=== PATIENT | female | born 1995 | race Two or more races ===

== ENCOUNTER 2021-09-22 14:33 | Emergency (ER) | payer MEDICAID ==
[~2021-09-22] VITALS: Ht 167.6 cm; Wt 61.7 kg
[2021-09-22 16:55] VITALS: BP 119/62
[2021-09-22] MEDS ORDERED: ACETAMINOPHEN 325 MG TAB PO ONE (17:00)
[2021-09-22] MEDS ORDERED: NAPR500T31 PO (17:26)
== END 2021-09-22 17:44 | disposition home or self-care (01) ==
LOC: ER 14:33 → EDBD 14:33 → ER 17:44
DX: S00.83XA Contusion of other part of head, initial encounter (principal); Z79.899 Other long term (current) drug therapy; Y04.2XXA Assault by strike against or bumped into by another person, initial encounter; Y93.89 Activity, other specified; Y92.89 Other specified places as the place of occurrence of the external cause; Y99.8 Other external cause status
CPT/HCPCS: 70486